=== PATIENT | female | born 2005 | race Two or more races ===

== ENCOUNTER → 2023-08-12 | Emergency (ER) | payer OTHER ==
[~2023-08-12] VITALS: Ht 160 cm; Wt 64.4 kg
[2023-08-12 20:49] LABS: HEMATOCRIT 37.4 % (36.0-45.00); MEAN CORPUSCULAR HEMOGLOBIN 23.7 pg (27.00-32.0); PLATELET COUNT 294 K/uL (150-450); RED BLOOD COUNT 5.06 M/uL (4.00-6.00); RED CELL DISTRIBUTION WIDTH 13.4 % (11.5-14.5)
== END | disposition home or self-care (01) ==
LOC: ER 18:26
DX: J06.9 Acute upper respiratory infection, unspecified (principal); Z20.822 Contact with and (suspected) exposure to COVID-19